=== PATIENT | male | born 1980 | race Caucasian/White ===

== ENCOUNTER 2024-12-24 23:14 | Inpatient (IN) | payer MEDICARE ==
[~2024-12-24] VITALS: Ht 180.3 cm; Wt 75.6 kg
[2024-12-24 23:30] VITALS: PULSE 104; RESP 22; O2SAT 96
[2024-12-24] MEDS: ALBUTEROL SULFATE 2.5 MG/0.5 ML NEB SOLUTION NEB ONE (23:41)
[2024-12-24] MEDS: IPRATROPIUM BROMIDE 0.5 MG/2.5 ML NEB SOLUTION NEB ONE ×2 (23:41→23:47)
[2024-12-24 23:42] VITALS: PULSE 104; RESP 22; O2SAT 96
[2024-12-24] MEDS ORDERED: 0.9% SODIUM CHLORIDE 5 ML NEB SOLUTION NEB ONE (23:46)
[2024-12-24] MEDS: ALBUTEROL SULFATE 2.5 MG/0.5 ML 5 ML NEB SOLUTION NEB ONE (23:47)
[2024-12-24 23:57] VITALS: PULSE 106; RESP 20; O2SAT 98
[2024-12-24 23:58] VITALS: PULSE 106; RESP 22; O2SAT 98
[2024-12-25] VITALS (12 sets, daily range): BP systolic 106–126; BP diastolic 68–85; PULSE 86–111; RESP 17–22; TEMP 97.7–98.8; O2SAT 96–100
[2024-12-25] MEDS ORDERED: 0.9% SODIUM CHLORIDE 5 ML NEB SOLUTION NEB ONE (02:14)
[2024-12-25] MEDS: ALBUTEROL SULFATE 2.5 MG/0.5 ML NEB SOLUTION NEB ONE (02:17)
[2024-12-25] MEDS: IPRATROPIUM BROMIDE 0.5 MG/2.5 ML NEB SOLUTION NEB ONE (02:17)
[2024-12-25 02:23] LABS: PLATELET COUNT (AUTO) 263 K/uL (150-450); RED BLOOD CELL COUNT(AUTO) 4.74 MIL/uL (4.50-5.90); RED CELL DISTRIBUTION WIDTH 14.8 % (11.5-14.5); WHITE BLOOD COUNT (AUTO) 10.5 K/uL (4.5-11.0)
[2024-12-25 02:32] LABS: CALCIUM, TOTAL 8.4 mg/dL (8.8-10.5); CREATININE 0.73 mg/dL (0.60-1.30); GLOMERULAR FILTR. RATE CALC > 60 mL/min (>60); GLUCOSE,RANDOM 157 mg/dL (70-110); SODIUM SERUM 139 mmol/L (136-145); UREA NITROGEN, BLOOD 10 mg/dL (7-18)
[2024-12-25] MEDS ORDERED: MAGNESIUM SULFATE 2 GM in DEXTROSE 5%-WATER 100 ML IV ONE (02:45)
[2024-12-25] MEDS: MAGNESIUM SULFATE 2 GM/WATER 50 ML IV ONE (02:53)
[2024-12-25 03:01] LABS: COVID AG,FIA SOURCE NASAL SWAB
[2024-12-25 03:12] LABS: SARS-COV2 (COVID) ANTIGEN,FIA Negative (Negative)
[2024-12-25 03:13] LABS: INFLUENZA TYPE A NEGATIVE FOR TYPE A (NEGATIVE); INFLUENZA TYPE B NEGATIVE FOR TYPE B (NEGATIVE)
[2024-12-25] MEDS ORDERED: ONDANSETRON HCL 4 MG/2 ML VIAL IVP PRN (03:45)
[2024-12-25] MEDS ORDERED: ACETAMINOPHEN 325 MG TABLET PO PRN (03:45)
[2024-12-25] MEDS ORDERED: ALBUTEROL SULFATE 2.5 MG/0.5 ML NEB SOLUTION NEB PRN (03:45)
[2024-12-25] MEDS: ALBUTEROL SULFATE 2.5 MG/0.5 ML NEB SOLUTION NEB SCH (08:00)
[2024-12-25] MEDS: DOCUSATE SODIUM 100 MG CAPSULE PO SCH (09:20)
[2024-12-25] MEDS: HEPARIN SODIUM,PORCINE 5,000 UNITS/ML VIAL SQ SCH (09:20)
[2024-12-25] MEDS: RINGERS SOLUTION,LACTATED 500 ML IV ONE (15:25)
[2024-12-25] MEDS: CefTRIAXone 1 GM/DEXTROSE 50 ML IV SCH (17:22)
[2024-12-25] MEDS: DOXYCYCLINE HYCLATE 100 MG TABLET PO SCH (17:22)
[2024-12-26] VITALS (11 sets, daily range): BP systolic 110–120; BP diastolic 60–80; PULSE 89–110; RESP 16–20; TEMP 98–99; O2SAT 94–99
[2024-12-26] MEDS ORDERED: 0.9% SODIUM CHLORIDE 5 ML NEB SOLUTION NEB ONE ×2 (02:13→19:08)
[2024-12-26 07:20] LABS: CALCIUM, TOTAL 9.1 mg/dL (8.8-10.5); CREATININE 0.89 mg/dL (0.60-1.30); GLOMERULAR FILTR. RATE CALC > 60 mL/min (>60); GLUCOSE,RANDOM 150 mg/dL (70-110); SODIUM SERUM 137 mmol/L (136-145); UREA NITROGEN, BLOOD 14 mg/dL (7-18)
[2024-12-26 07:21] LABS: PLATELET COUNT (AUTO) 312 K/uL (150-450); RED BLOOD CELL COUNT(AUTO) 4.83 MIL/uL (4.50-5.90); RED CELL DISTRIBUTION WIDTH 15.3 % (11.5-14.5); WHITE BLOOD COUNT (AUTO) 18.9 K/uL (4.5-11.0)
[2024-12-26] MEDS ORDERED: SODIUM CHLORIDE 0.9% 250 ML IV ONE (17:39)
[2024-12-26] MEDS: AMPICILLIN SODIUM/SULBACTAM NA 1.5 GM in SODIUM CHLORIDE 0.9% 50 ML IV SCH (18:30)
[2024-12-27] VITALS (10 sets, daily range): BP systolic 112–128; BP diastolic 67–92; PULSE 78–94; RESP 17–19; TEMP 98.1–98.4; O2SAT 95–100
[2024-12-27] MEDS ORDERED: 0.9% SODIUM CHLORIDE 5 ML NEB SOLUTION NEB ONE (02:02)
[2024-12-27 07:31] LABS: PLATELET COUNT (AUTO) 297 K/uL (150-450); RED BLOOD CELL COUNT(AUTO) 4.65 MIL/uL (4.50-5.90); RED CELL DISTRIBUTION WIDTH 15.3 % (11.5-14.5); WHITE BLOOD COUNT (AUTO) 16.7 K/uL (4.5-11.0)
[2024-12-27 07:40] LABS: CALCIUM, TOTAL 8.7 mg/dL (8.8-10.5); CREATININE 0.81 mg/dL (0.60-1.30); GLOMERULAR FILTR. RATE CALC > 60 mL/min (>60); GLUCOSE,RANDOM 144 mg/dL (70-110); SODIUM SERUM 136 mmol/L (136-145); UREA NITROGEN, BLOOD 16 mg/dL (7-18)
[2024-12-27] MEDS ORDERED: AMOX-457 PO (10:53)
[2024-12-27] MEDS ORDERED: PRED-729 PO (10:54)
[2024-12-27] MEDS: MECLIZINE HCL 25 MG TABLET PO SCH (12:44)
[2024-12-27] MEDS: INFLUENZA VIRUS VACCINE TVS (6MO+) 2025-26/PF 45 MCG/0.5 ML SYRINGE IM. ONE (16:21)
[2024-12-27] MEDS ORDERED: MECL-302 PO (17:02)
[2024-12-27] MEDS ORDERED: ALBU90AE IH (17:02)
[2024-12-27] MEDS ORDERED: BENZ-227 PO (17:05)
== END 2024-12-27 19:00 | disposition home or self-care (01) | DRG 189 ==
LOC: EMS 23:32 → EDH 12-25 03:36 → 5S 12-25 08:27
PROVIDERS: ADMIT Internal Medicine; ATTEND Internal Medicine
DX: J96.01 Acute respiratory failure with hypoxia (principal); J45.902 Unspecified asthma with status asthmaticus; R65.10 Systemic inflammatory response syndrome (SIRS) of non-infectious origin without acute organ dysfunction; H70.003 Acute mastoiditis without complications, bilateral; F17.200 Nicotine dependence, unspecified, uncomplicated; Z20.822 Contact with and (suspected) exposure to COVID-19; H66.93 Otitis media, unspecified, bilateral; I10 Essential (primary) hypertension; Z79.899 Other long term (current) drug therapy
CPT/HCPCS: 71045; 71046; 80048; 83735; 83880; 85025; 87804; 90686; 94010; 94060; 94640; 94644; 99291; G0378; J0295; J0696; J1644; J2919; J3475; J7050; J7060; J7120; 36415-L1; 36415-TC; G0008; J7613